=== PATIENT | female | born 1970 | race Caucasian/White ===

== ENCOUNTER → 2018-11-20 | Outpatient (CLI) | payer OTHER ==
[2017-07-01 00:50] VITALS: BP 139/91
[~2018-11-20] MED LIST: LINZESS145 MCG PO; METH4TAB2 PO
--- NOTE | 2018-11-20 13:06 | RAD ---
EXAM: Nuclear gastric emptying scan. HISTORY: Bloating and pain. COMPARISON: None. TECHNIQUE: Serial static images were obtained over the stomach following oral administration of 2 mCi of 99m-Tc sulfur colloid. FINDINGS: The stomach empties into the small bowel without evidence of reflux in the area of the esophagus. The estimated time for half emptying of gastric contents, i.e. 'gastric emptying time' is 70 minutes (normal is 66 +/- 22 minutes). There is 53% retained tracer activity within the stomach at one hour, 24% retained tracer activity within the stomach at 2 hours, 10% retained tracer activity within stomach at 3 hours, and 0% retained tracer activity within the stomach at 4 hours. IMPRESSION: Normal gastric emptying scan. Electronically signed by: Rehana Cano MD (11/20/2018 1:03 PM) [facility]
== END | disposition home or self-care (01) ==
LOC: NM 08:14
PROVIDERS: ATTEND Internal Medicine Gastroenterology
DX: R10.9 Unspecified abdominal pain (principal)
CPT/HCPCS: 78264; A9541

== ENCOUNTER → 2019-03-25 | Outpatient (CLI) | payer OTHER ==
[2017-07-01 00:50] VITALS: BP 139/91
[~2019-03-25] MED LIST changes: +IOHEXOL 240 MG/ML 50ML VIAL. PO ONE; +IOHEXOL 300 MG/ML 100ML VIAL. IV ONE
--- NOTE | 2019-03-25 10:25 | KCIC ---
AP and Lateral Views of the Chest 03/25/2019 12:00 AM Indication: Call Comparison: None available Findings: There is no focal consolidation or infiltrate identified. The cardiomediastinal silhouette is within normal limits. There is no evidence of pneumothorax or pleural effusion. No acute osseous abnormalities are identified. Impression: No evidence of acute cardiopulmonary process. Electronically signed by: Blaine Huitron MD (03/25/2019 10:22 AM) [id number]
--- NOTE | 2019-03-25 14:12 | KCIC ---
Study: CT abdomen/pelvis with intravenous contrast Indication: Diffuse abdominal pain. Comparison: CT abdomen/pelvis 09/03/2014 Technique: Helical CT imaging performed of the abdomen and pelvis after the intravenous administration of 89 cc Omnipaque 300 contrast. Sagittal and coronal reformats were obtained. Findings: Lower thorax: Mild bibasilar groundglass opacification which was present on the prior and is overall similar. The visualized heart is within normal limits. Liver: No focal abnormality. Gallbladder/Biliary tree: The gallbladder is not visualized and is presumed surgically absent. No abnormal dilatation of the biliary tree. Pancreas: Unremarkable. Spleen: Unremarkable. Adrenal glands: Nodularity of the left adrenal gland, image 27 series 2, is unchanged from the prior. Kidneys/Bladder: Small right renal cystic foci, image 30 series 2. No hydronephrosis or hydroureter. No visualized nephrolithiasis. The urinary bladder is unremarkable. Stomach/Bowel/Appendix: No focal abnormality of the gastric mucosa. Orally administered contrast passes through the majority of the small bowel without obstruction. Short segment wall thickening of the distal small bowel in the left lower quadrant with some adjacent mesenteric edema. This is well seen on image 60 series 2 with mesenteric edema seen on image 65 series 2. Additional segmental area of distal small bowel wall thickening within the pelvis reference images 66 through 72, series 2. Scattered more mild small bowel wall thickening seen elsewhere throughout the pelvis/lower abdomen. Moderately constipated state. Some fluid is seen within the proximal colon. No overt colonic wall thickening. No pneumatosis or perforation. The appendix appears to be seen on image 62 and is without inflammatory changes. Reproductive organs: The uterus is surgically absent. The ovaries are unremarkable. Lymph Nodes: Enlarged mesenteric lymph node conglomerate at the upper pelvis, image 61 series 2, with prominent lymph nodes seen in this region previously though have enlarged in the interim. The conglomerate measures approximately 2.4 cm on image 61 series 2. No inguinal lymphadenopathy. Vasculature: Similar extent of calcified/noncalcified atheromatous plaque. No aneurysmal dilatation. The mesenteric vasculature appears hyperemic in the region of small bowel wall thickening. Bones: No acute or destructive osseous abnormality. Miscellaneous: No free fluid seen layering within the pelvis. No free air. Unremarkable body wall soft tissues. Impression: 1. Multifocal small bowel wall thickening mainly involving the distal small bowel such as at the left lower quadrant and scattered throughout the pelvis. The mesenteric vasculature appears hyperemic in these regions and there is some mild edema of the mesentery itself. Interval enlargement of a mesenteric lymph node conglomerate at the upper pelvis adjacent to an area of wall thickening relative to the 2015 comparison. The collective appearance is most suggestive of an infectious or inflammatory enteritis and correlation for a history of Crohn's is recommended. A neoplastic process is considered less likely given the pattern of involvement and ancillary findings. No obstruction or perforation. 2. Moderately constipated state. 3. Previously seen cystic abnormality at the right lower quadrant is no longer apparent. A portion of the appendix is visualized and is within normal limits. Electronically signed by: PETER CARTER MD (03/25/2019 2:10 PM) [id number]
== END | disposition home or self-care (01) ==
LOC: KCIC CT 08:05
PROVIDERS: ATTEND Internal Medicine Gastroenterology
DX: K59.00 Constipation, unspecified (principal); R59.0 Localized enlarged lymph nodes; R05 Cough; R53.83 Other fatigue; F17.200 Nicotine dependence, unspecified, uncomplicated
CPT/HCPCS: 71046; 74177; Q9966; Q9967

== ENCOUNTER → 2019-03-31 | Outpatient (CLI) | payer OTHER ==
[2017-07-01 00:50] VITALS: BP 139/91
[~2019-03-31] MED LIST changes: +BARIUM SULFATE 60% 355 ML SUSP PO ONE; -IOHEXOL 240 MG/ML 50ML VIAL. PO ONE; -IOHEXOL 300 MG/ML 100ML VIAL. IV ONE
--- NOTE | 2019-03-31 10:54 | KCIC ---
SMALL BOWEL SERIES Clinical Indication: RUQ PAIN/GAS/BLOATING Comparison: CT March 25, 2019 Findings: The patient drank approximately 900 mL thin barium contrast. The workforce specialist image demonstrates a nonobstructive bowel gas pattern. The 0 minute image demonstrates contrast opacification of the duodenum which appears normal in position. There are also multiple opacified loops of jejunum. The 40 minute image demonstrates that contrast has reached the right colon. Under direct fluoroscopic visualization the abdomen was palpated with a radiolucent paddle. The small bowel loops are normal in morphology. Normal morphology of bowel loops. No bowel wall dilatation. Small bowel loops are freely mobile. The terminal ileum is well visualized and is normal. 66 seconds of fluoroscopy was used. 9 fluoroscopic images were obtained. IMPRESSION: 1. Unremarkable barium small bowel series. Contrast at the level of the colon at 40 minutes. Electronically signed by: Norm Davila DO (03/31/2019 10:51 AM) [facility]
== END | disposition home or self-care (01) ==
LOC: KCIC 07:56
PROVIDERS: ATTEND Internal Medicine Gastroenterology
DX: K63.89 Other specified diseases of intestine (principal); R10.9 Unspecified abdominal pain; R19.7 Diarrhea, unspecified
CPT/HCPCS: 74250

== ENCOUNTER → 2019-07-08 | Outpatient (CLI) | payer OTHER ==
[2017-07-01 00:50] VITALS: BP 139/91
[~2019-07-08] MED LIST changes: -BARIUM SULFATE 60% 355 ML SUSP PO ONE; +IOHEXOL 300 MG/ML 100ML VIAL. IV ONE
--- NOTE | 2019-07-08 15:33 | KCIC ---
CT HEAD WO/W CONTRAST Date: 07/08/2019 10:30 AM Clinical Indication: Headache, nausea, vomiting Comparison: None. Technique: 5 mm axial tomographic images were obtained of the head with and without contrast. 80 cc Omnipaque 300 contrast was administered intravenously during the exam. These were viewed on brain and bone windows. One or more of the following dose reduction techniques were utilized: Automated exposure control (AEC), Adjustment of mA and/or kV according to patient size, Use of iterative reconstruction technique such as ASiR, CT scan done according to ALARA and image gently/image wisely Findings: The brain parenchyma is normal in attenuation. No intra- or extra-axial mass or fluid collection. No acute hemorrhage. The ventricles are normal in size, shape, and morphology. The cota-white matter junction is normal. The subarachnoid cisterns are patent. No abnormal enhancement. The visualized paranasal sinuses are normal. The visualized portions of the orbits and globes are normal. The mastoid air cells are clear. The supervisor firearms topogram shows no lytic lesion or fracture. Impression: No acute intracranial process. Electronically signed by: Stefan Chung MD (07/08/2019 3:30 PM) [facility]
== END | disposition home or self-care (01) ==
LOC: KCIC CT 10:18
PROVIDERS: ATTEND Internal Medicine Gastroenterology
DX: G43.909 Migraine, unspecified, not intractable, without status migrainosus (principal); R11.2 Nausea with vomiting, unspecified
CPT/HCPCS: 70470; Q9967